=== PATIENT | male | born 1985 | race Hispanic/Latino ===

== ENCOUNTER 2022-02-17 13:04 | Inpatient (IN) | payer OTHER ==
[~2022-02-17] VITALS: Ht 180.3 cm; Wt 114.9 kg
[2022-02-17] MEDS ORDERED: CYCLOBENZAPRINE HCL 10 MG TABLET PO ONE (13:30)
[2022-02-17] MEDS ORDERED: KETOROLAC 30MG VIAL (30MG/ML) IVP ONE (13:30)
[2022-02-17 13:38] LABS: BASOPHILS % (AUTO) 0.3 % (0.0-5.0); EOSINOPHILS % (AUTO) 0.1 % (0.0-8.0); HEMATOCRIT 39.3 % (42-54); LYMPHOCYTES % (AUTO) 15.7 % (21.0-51.0); MEAN CORPUSCULAR HEMOGLOBIN 27.3 pg (27.0-33.0); MEAN CORPUSCULAR HGB CONC 34.1 g/dL (32.0-36.0); MEAN CORPUSCULAR VOLUME 80.2 fL (79-99); MONOCYTES % (AUTO) 6.8 % (3.0-13.0); NEUTROPHILS % (AUTO) 76.5 % (40.0-77.0); PLATELET COUNT (AUTO) 258 K/uL (130-400); WHITE BLOOD COUNT (AUTO) 10.6 K/uL (4.8-10.8)
[2022-02-17 13:46] LABS: CREATININE 1.1 mg/dL (0.5-1.5)
[2022-02-17 14:00] LABS: ALBUMIN 4.4 g/dL (3.5-5.0); TOTAL PROTEIN, SERUM 8.1 g/dL (6.0-8.3)
[2022-02-17 14:41] LABS: APPEARANCE,URINE CLEAR (CLEAR); BILIRUBIN,URINE NEGATIVE (NEGATIVE); COLOR,URINE LIGHT-YELLOW (YELLOW); GLUCOSE, URINE (UA) NEGATIVE (NEGATIVE); KETONES,URINE NEGATIVE (NEGATIVE); LEUKOCYTE ESTERASE ,URINE NEGATIVE Leu/uL (NEGATIVE); NITRATE,URINE NEGATIVE (NEGATIVE); OCCULT BLOOD,URINE LARGE (NEGATIVE); PROTEIN,URINE 70 mg/dL (NEGATIVE); UROBILINOGEN,URINE 0.2 mg/dL (0.2-1.0)
[2022-02-17 14:48] LABS: BACTERIA,URINE RARE /HPF (None Seen); MUCUS,URINE RARE LPF (None Seen); SQUAMOUS EPITHELIAL CELL,UR RARE /HPF (0-2); WBC,URINE 0-1 /HPF (0-1)
[2022-02-17] MEDS ORDERED: 0.9%NACL 1000ML 1,000 ML IV SCH ×2 (15:00→15:30)
[2022-02-17] MEDS: ACETAMINOPHEN 325 MG TAB PO PRN (18:27)
[2022-02-17] MEDS ORDERED: MAG/ALUM/SIMETH 30 ML UDCUP PO PRN (18:30)
[2022-02-17] MEDS ORDERED: ONDANSETRON 4MG INJ IVP PRN (18:30)
[2022-02-17] MEDS ORDERED: DIPHENHYDRAMINE HCL 25 MG CAPSULE PO PRN (18:30)
[2022-02-17] MEDS: 0.9%NACL 1000ML 1,000 ML IV SCH (20:00)
[2022-02-17 20:30] VITALS: BP 153/84
[2022-02-17] MEDS: FAMOTIDINE 20MG TAB PO SCH (21:57)
[2022-02-17] MEDS ORDERED: HYDROMORPHONE 0.5 MG SYG (0.5MG/0.5ML) IVP ONE (22:00)
[2022-02-18] VITALS (7 sets, daily range): BP systolic 132–159; BP diastolic 50–92
[2022-02-18 06:10] LABS: POTASSIUM 3.4 mmol/L (3.5-5.1)
[2022-02-18] MEDS: FAMOTIDINE 20MG TAB PO SCH ×2 (08:31→20:38)
[2022-02-18] MEDS: 0.9%NACL 1000ML 1,000 ML IV SCH ×4 (08:32→20:39)
[2022-02-18] MEDS: ACETAMINOPHEN 325 MG TAB PO PRN (23:37)
[2022-02-19 03:40] VITALS: BP 138/76
[2022-02-19 04:38] LABS: BASOPHILS % (AUTO) 0.1 % (0.0-5.0); EOSINOPHILS % (AUTO) 0.6 % (0.0-8.0); HEMATOCRIT 37.3 % (42-54); LYMPHOCYTES % (AUTO) 7.6 % (21.0-51.0); MEAN CORPUSCULAR HEMOGLOBIN 27.2 pg (27.0-33.0); MEAN CORPUSCULAR HGB CONC 33.5 g/dL (32.0-36.0); MEAN CORPUSCULAR VOLUME 81.3 fL (79-99); MONOCYTES % (AUTO) 6.9 % (3.0-13.0); NEUTROPHILS % (AUTO) 84.2 % (40.0-77.0); PLATELET COUNT (AUTO) 198 K/uL (130-400); RED BLOOD CELL COUNT(AUTO) 4.59 MIL/uL (4.50-6.20); WHITE BLOOD COUNT (AUTO) 6.7 K/uL (4.8-10.8)
[2022-02-19] MEDS: 0.9%NACL 1000ML 1,000 ML IV SCH ×3 (04:59→15:11)
[2022-02-19 05:04] LABS: CREATININE 1.1 mg/dL (0.5-1.5); POTASSIUM 3.4 mmol/L (3.5-5.1)
[2022-02-19 07:55] VITALS: BP 117/78
[2022-02-19] MEDS: FAMOTIDINE 20MG TAB PO SCH ×2 (08:32→20:00)
[2022-02-19 11:55] VITALS: BP 118/78
[2022-02-19] MEDS ORDERED: BENZONATATE 100 MG CAPSULE PO PRN (14:00)
[2022-02-19 15:55] VITALS: BP 139/79
[2022-02-19] MEDS ORDERED: HYDROMORPHONE 0.5 MG SYG (0.5MG/0.5ML) IVP ONE (17:30)
[2022-02-19] MEDS: ACETAMINOPHEN 325 MG TAB PO PRN (17:42)
[2022-02-19] MEDS: GUAIFENESIN/DEXTROMETHORPHAN 1 EACH TAB.SR.12H PO SCH (20:00)
[2022-02-19] MEDS: OSELTAMIVIR PHOSPHATE 75 MG CAP PO SCH (20:00)
[2022-02-19 21:05] VITALS: BP 132/82
[2022-02-20 00:22] VITALS: BP 136/84
[2022-02-20] MEDS: 0.9%NACL 1000ML 1,000 ML IV SCH ×2 (00:35→08:14)
[2022-02-20] MEDS: ACETAMINOPHEN 325 MG TAB PO PRN (01:55)
[2022-02-20 04:34] VITALS: BP 142/76
[2022-02-20 05:24] LABS: BASOPHILS % (AUTO) 0.3 % (0.0-5.0); EOSINOPHILS % (AUTO) 0.2 % (0.0-8.0); HEMATOCRIT 36.9 % (42-54); LYMPHOCYTES % (AUTO) 12.8 % (21.0-51.0); MEAN CORPUSCULAR HEMOGLOBIN 26.9 pg (27.0-33.0); MEAN CORPUSCULAR HGB CONC 33.9 g/dL (32.0-36.0); MEAN CORPUSCULAR VOLUME 79.5 fL (79-99); MONOCYTES % (AUTO) 7.4 % (3.0-13.0); NEUTROPHILS % (AUTO) 78.8 % (40.0-77.0); PLATELET COUNT (AUTO) 192 K/uL (130-400); RED BLOOD CELL COUNT(AUTO) 4.64 MIL/uL (4.50-6.20); RED CELL DISTRIBUTION WIDTH 13.1 % (11.0-15.5); WHITE BLOOD COUNT (AUTO) 6.1 K/uL (4.8-10.8)
[2022-02-20 06:09] LABS: CREATININE 1.1 mg/dL (0.5-1.5); POTASSIUM 3.1 mmol/L (3.5-5.1)
[2022-02-20 07:50] VITALS: BP 117/84
[2022-02-20] MEDS: OSELTAMIVIR PHOSPHATE 75 MG CAP PO SCH (08:13)
[2022-02-20] MEDS: FAMOTIDINE 20MG TAB PO SCH (08:13)
[2022-02-20] MEDS: GUAIFENESIN/DEXTROMETHORPHAN 1 EACH TAB.SR.12H PO SCH (09:20)
[2022-02-20] MEDS ORDERED: POTASSIUM CHLORIDE 10% ELIXIR 20 MEQ/15 ML UDCUP PO SCH (10:00)
[2022-02-20] MEDS ORDERED: OSEL75 PO (10:45)
[2022-02-20] MEDS ORDERED: BENZ-70 PO (10:45)
[2022-02-20 11:00] VITALS: BP 140/89
== END 2022-02-20 14:00 | disposition home or self-care (01) | DRG 558 ==
LOC: EDH 13:04 → OBSVTOIN 13:05 → EDHIP 13:05 → 3DH 20:02
PROVIDERS: ADMIT Family Medicine; ATTEND Family Medicine
DX: M62.82 Rhabdomyolysis (principal); T67.2XXA Heat cramp, initial encounter; E66.9 Obesity, unspecified; Z20.822 Contact with and (suspected) exposure to COVID-19; S93.402A Sprain of unspecified ligament of left ankle, initial encounter; X58.XXXA Exposure to other specified factors, initial encounter; Y93.89 Activity, other specified; Y92.89 Other specified places as the place of occurrence of the external cause; Y99.8 Other external cause status; Z68.35 Body mass index [BMI] 35.0-35.9, adult
CPT/HCPCS: 36415; 73630; 80048; 80053; 81001; 82550; 84484; 85025; 87635; 87804; 93005; 97039; G0378; J1170; J1885